=== PATIENT | male | born 1960 | race Hispanic/Latino ===

== ENCOUNTER 2020-05-21 06:30 | Day surgery (SDC) | payer BC ==
[2020-05-21] MEDS ORDERED: ASPIRIN EC 325 MG TAB PO NR (07:07)
[2020-05-21] MEDS ORDERED: SODIUM CHLORIDE 0.9% 500 ML 500 ML IV SCH (08:00)
[2020-05-21] MEDS ORDERED: fentaNYL 100 MCG/2 ML INJ ONE (08:09)
[2020-05-21] MEDS ORDERED: HEPARIN/NS 5000 UNIT/500ML 1,000 ML IR ONE (08:09)
[2020-05-21] MEDS ORDERED: MIDAZOLAM 2 MG/2 ML INJ ONE (08:09)
[2020-05-21] MEDS ORDERED: LIDOCAINE (2%) 20 MG/1 ML VIAL 20 ML MDV INFILTRATI ONE (08:09)
[2020-05-21] MEDS: NITROGLYCERIN SYRINGE 3 ML ONE ×2 (09:07→09:09)
[2020-05-21] MEDS: HEPARIN 10,000 UNITS/10 ML VIAL ONE ×2 (09:08→09:09)
[2020-05-21] MEDS: VERAPAMIL 5 MG/2 ML INJ ONE ×2 (09:08→09:09)
--- NOTE | 2020-05-21 09:45 | Cardiac Catherization Report ---
LEFT HEART CATHETERIZATION ORDERING PHYSICIAN: Dr. Jean Baptiste. CLINICAL INFORMATION: This is a 60-year-old male with severe coronary calcification with a Harding classification 2-3 angina, normal LV function on echocardiogram, is a smoker, is here for left heart catheterization. Procedure was done with moderate sedation started 9:05 finished at 9:20, 15 minutes of moderate sedation. Procedure was done via the right radial artery, sterile technique, local anesthesia. Left system engaged with JL3.5 catheter. FINDINGS: Left main is a medium caliber vessel. Distal 95% lesion. LAD ostial 99%. Rest of LAD is a large caliber vessel, is patent with mild luminal irregularities. Diagonal 1 is a medium to large caliber vessel, patent. Diagonal 2 is a medium caliber vessel, patent. Circumflex ostial has 90%. The rest of the circumflex and AV groove is a large caliber vessel, patent with mild luminal irregularities. OM1 and OM2 are medium to large caliber vessel, patent with mild luminal irregularities. RCA engaged with JR4 catheter, is a large dominant vessel, proximal 20%, rest of the LAD is patent. PDA, PLV medium to large caliber, patent with collaterals feeding into the distal apical LAD. LV gram done in TURKMEN and HERNANDEZ view shows normal LV function, EF 55-60%, LVEDP 18 mmHg, LV is 156. Aortic is 160/67. No gradient across the aortic valve on pullback, 5-[place] catheters all taken over guidewire, 6-[place] radial sheath was discontinued. Radial band applied. No hematoma, no bleeding. SUMMARY: Significant left main distal 95%, ostial circumflex 90%, ostial LAD 99%, but rest of LAD is [id number]-[id number] caliber vessel, patent with mild luminal irregularities. Diagonal 1 medium to large caliber, patent with mild luminal irregularities. Diagonal 2 medium caliber patent. Circumflex AV groove is a large caliber vessel, patent. OM1 and OM2 medium to large caliber vessel, patent. RCA has proximal 20%, mid to distal patent, large caliber PDA, PLV medium to large caliber pedal with right to left collaterals with normal LV function. The patient will be transferred to [place] for bypass surgery. Discussed this with the patient and patient's family in detail. JOB# [id number] BENITO/ELIZABETH
[2020-05-21] MEDS ORDERED: HYDROcodone/ACETAMINOPHEN 5-325 MG TAB PO PRN (10:09)
[2020-05-21] MEDS ORDERED: traMADol 50 MG TAB PO PRN (10:09)
--- NOTE | 2020-05-21 11:16 | Short Stay Summary ---
Short Stay Documentation Date of service: 05/21/20 - History H&P: obtained from office - Allergies and Medications Current Medications: Allergies No Known Allergies Allergy (Verified 05/21/20 07:06) Home Medications Medication Instructions Recorded Confirmed Last Taken Type Aspirin [Adult Aspirin] 81 mg PO DAILY 05/21/20 05/21/20 05/20/20 History 81 mg ISOSORBIDE MONOnitrate [Imdur ER] 30 mg PO DAILY 05/21/20 05/21/20 05/20/20 History 30 mg Metoprolol [Lopressor TAB] 25 mg PO HS 05/21/20 05/21/20 05/20/20 History 25 mg Simvastatin 20 mg PO HS 05/21/20 05/21/20 05/20/20 History 20 mg lisinopriL [Lisinopril] 20 mg PO DAILY 05/21/20 05/21/20 05/20/20 History 20 mg Active Medications Hydrocodone Bitart/Acetaminophen (Hydrocodone/Acetaminophen 5-325 Mg Tab) 1 each PO Q4H PRN PRN Reason: Pain, Moderate (4-6) Stop: 05/21/20 23:00 Sodium Chloride (Nacl 0.9% 500 Ml) 500 mls @ 50 mls/hr IV DIRECT MAYCO Stop: 05/21/20 17:59 Last Admin: 05/21/20 08:35 Dose: 50 mls/hr Documented by: Tramadol HCl (Tramadol 50 Mg Tab) 50 mg PO Q4H PRN PRN Reason: Pain, Mild (1-3) Stop: 05/21/20 23:00 - Brief post op/procedure progress note Date of procedure: 05/21/20 Pre-op diagnosis: CAD Post-op diagnosis: same Procedure: [facility] - see dictated cath report Anesthesia: local Estimated blood loss: none Condition: stable - Hospital course Hospital course: [facility] showed significant left main disease - see dictated cath report. Pt to be tx to [place] for revascularization. - Disposition Condition at discharge: Stable Disposition: [id number] [facility] - Discharge Diagnoses (1) CAD (coronary artery disease) Status: Chronic (2) Tobacco use Status: Chronic Short Stay Discharge Plan Diet: low fat, low cholesterol, low salt Wound: open to air, keep clean and dry, per your surgeon's advice Follow up with: MAJO PORTILLO MD [Primary Care Provider] - 7 Days TABATHA COLLIER MD [Staff Physician] - 7 Days
[2020-05-21 12:17] VITALS: BP 156/69
== END 2020-05-21 12:30 | disposition other institution (70) ==
LOC: CATHLABREC 06:30
PROVIDERS: ATTEND Internal Medicine
DX: I25.118 Atherosclerotic heart disease of native coronary artery with other forms of angina pectoris (principal); E78.5 Hyperlipidemia, unspecified; I10 Essential (primary) hypertension; F17.210 Nicotine dependence, cigarettes, uncomplicated; Z79.899 Other long term (current) drug therapy; Z79.82 Long term (current) use of aspirin; Z98.890 Other specified postprocedural states; Z82.49 Family history of ischemic heart disease and other diseases of the circulatory system
CPT/HCPCS: 93005; 93458; 99156; C1894; J1644; J2250; J3010; J7040; Q9967